=== PATIENT | female | born 1970 | race Caucasian/White ===

== ENCOUNTER 2020-07-22 09:48 | Outpatient (CLI) | payer BC, SELFPAY ==
--- NOTE | 2020-07-26 07:56 | WPDHOLTEREM ---
Holter/Event Monitor Holter/Event Monitor Date of procedure: 07/22/20 Procedure Type: 48 hour holter monitor Indications: Palpitations Conclusion: 1. 48 hour holter monitor on 07/22/20. 2. Underlying rhythm is sinus rhythm. HR range 46-126 bpm; average HR 71 bpm. 3. There are 59 premature supraventricular complexse and 1 supraventricular couplet. No supraventricular tachycardia. 4. There are 1,233 premature ventricular complexes, 39 ventricular couplets and 88 ventricular trigeminy. No ventricular tachycardia. 5. No sinoatrial or atrioventricular blocks. No significant pauses greater than 2 seconds. 6. No symptoms available for correlation.
== END 2020-07-22 09:49 | disposition home or self-care (01) ==
LOC: ANHCARD 09:49
PROVIDERS: PCP Internal Medicine; Visit Provider Internal Medicine Cardiovascular Disease
DX: R00.2 Palpitations (principal)
CPT/HCPCS: 93225; 93226

== ENCOUNTER 2023-04-21 09:57 | Outpatient (CLI) | payer OTHER, SELFPAY ==
--- NOTE | 2023-04-21 10:02 | ECHO_ITS ---
Patient Info Name: Perla Mattson Age: 53 years : 1970 Gender: Female Ht: 65 in Wt: 190 lbs BSA: 2.02 m2 HR: 68 bpm BP: 122 / 75 mmHg Heart Rhythm: Sinus Rhythm Technical Quality: Fair Exam Date: 04/21/2023 10:13 AM Exam Location: [facility] Patient Status: Outpatient Admit Date: 04/21/2023 Staff Ordering Physician: Aj Arellano DO Gas Operation Manager: Valery Morel RDCS Attending Provider: Aj Arellano DO Referring Physician: Adan PIERRE; Exam Type: CA echo doppler color flow Study Info Indications I49.3 - Ventricular premature depolarization Complete two-dimensional, color flow and Doppler transthoracic echocardiogram is performed. Summary 1. Complete two-dimensional, color flow and Doppler transthoracic echocardiogram is performed. 2. Left ventricular chamber dimension is normal. 3. Left ventricular systolic function is normal, estimated at 65-70%. 4. The left ventricular diastolic function is normal. 5. E/e' 7 is not elevated. 6. There is trace mitral valve regurgitation. 7. There is mild tricuspid valve regurgitation. 8. No pulmonary hypertension, estimated pulmonary arterial systolic pressure is 30 mmHg. 9. There is trace pulmonic regurgitation. Left Ventricle E/e' 7 is not elevated. Left ventricular chamber dimension is normal. Left ventricular systolic function is normal, estimated at 65-70%. The left ventricular diastolic function is normal. Right Ventricle Right ventricular chamber dimension is normal. Right ventricular systolic function is normal. Left Atria Left atrial chamber dimension is normal. Right Atria Right atrial chamber dimension is normal. Aortic Valve The aortic valve is trileaflet. There is no aortic valve stenosis. There is no aortic valve regurgitation. Pulmonic Valve There is trace pulmonic regurgitation. Mitral Valve There is no mitral valve stenosis. There is trace mitral valve regurgitation. Tricuspid Valve There is mild tricuspid valve regurgitation. No pulmonary hypertension, estimated pulmonary arterial systolic pressure is 30 mmHg. Pericardium/Pleural There is no pericardial effusion. Inferior Vena Cava Normal inferior vena cava with >50% collapse upon inspiration consistent with normal right atrial pressure, 5 mmHg. Aorta The aortic root size at the sinus of Valsalva is normal. Left Ventricular Outflow Tract Name Value Normal LVOT 2D LVOT Diameter 2.0 cm LVOT Doppler LVOT Peak Gradient 6 mmHg LVOT Mean Gradient 3 mmHg LVOT VTI 25 cm LVOT VTI/AV VTI Ratio 0.9 LVOT Stroke Volume 78 ml LVOT CO 4.6 l/min LVOT CI 2.3 l/min/m2 Pulmonic Valve Name Value Normal RVOT Doppler RVOT Peak Gradient 2 mmHg PV Doppler
--- NOTE | 2023-04-21 10:27 | EST_ITS ---
Patient Info Name: Perla Mattson Age: 53 years : 1970 Gender: Female Ht: 65 in Wt: 190 lbs BSA: 2.02 m2 HR: 62 bpm BP: 115 / 65 mmHg Heart Rhythm: Sinus Rhythm Exam Date: 04/21/2023 11:13 AM Exam Location: [facility] Patient Status: Outpatient Admit Date: 04/21/2023 Staff Ordering Physician: Aj Arellano DO Attending Provider: Aj Arellano DO Exercise Technologist: Debbie Chauhan CT Exercise Physician: Aj Arellano DO Exam Type: CA stress test treadmill Study Info Indications I49.3 - Ventricular premature depolarization A treadmill exercise stress test was performed. Summary 1. 1. Negative Rober exercise stress test for ischemic ST changes by ECG criteria. 2. 2. Good functional capacity, achieving 10 METs of workload. 3. 3. Appropriate HR response to exercise. 4. 4. Appropriate HR recovery at 1 minute post exercise. 5. 5. No imaging with stress testing. 6. 6. Patient informed of the above results. Protocol: Rober Stress ECG Details Stage: REST Duration (min): 0 min : 57 sec Speed (mph): 0.0 Grade (%): 0 HR (bpm): 64 SBP (mmHg): 115 DBP (mmHg): 65 METS: --- Stage: REST Duration (min): 5 min : 6 sec Speed (mph): 0.0 Grade (%): 0 HR (bpm): 70 SBP (mmHg): 115 DBP (mmHg): 65 METS: --- Stage: STAGE 1 Duration (min): 1 min : 0 sec Speed (mph): 1.7 Grade (%): 10 HR (bpm): 96 SBP (mmHg): 115 DBP (mmHg): 65 METS: --- Stage: STAGE 1 Duration (min): 2 min : 0 sec Speed (mph): 1.7 Grade (%): 10 HR (bpm): 106 SBP (mmHg): 115 DBP (mmHg): 65 METS: --- Stage: STAGE 1 Duration (min): 3 min : 0 sec Speed (mph): 1.7 Grade (%): 10 HR (bpm): 103 SBP (mmHg): 148 DBP (mmHg): 86 METS: --- Stage: STAGE 2 Duration (min): 1 min : 0 sec Speed (mph): 2.5 Grade (%): 12 HR (bpm): 119 SBP (mmHg): 148 DBP (mmHg): 86 METS: --- Stage: STAGE 2 Duration (min): 2 min : 0 sec Speed (mph): 2.5 Grade (%): 12 HR (bpm): 122 SBP (mmHg): 139 DBP (mmHg): 81 METS: --- Stage: STAGE 2 Duration (min): 3 min : 0 sec Speed (mph): 2.5 Grade (%): 12 HR (bpm): 122 SBP (mmHg): 139 DBP (mmHg): 81 METS: --- Stage: STAGE 3 Duration (min): 1 min : 0 sec Speed (mph): 3.4 Grade (%): 14 HR (bpm): 143 SBP (mmHg): 170 DBP (mmHg): 80 METS: --- Stage: STAGE 3 Duration (min): 2 min : 0 sec Speed (mph): 3.4 Grade (%): 14 HR (bpm): 148 SBP (mmHg): 170 DBP (mmHg): 80 METS: --- Stage: STAGE 3 Duration (min): 3 min : 0 sec Speed (mph): 3.4 Grade (%): 14 HR (bpm): 149 SBP (mmHg): 180 DBP (mmHg): 83 METS: --- Stage: RECOVERY Duration (min): 0 min : 59 sec Speed (mph): 0.0 Grade (%): 0 HR (bpm): 97 SBP (mmHg): 180 DBP (mmHg): 83 METS: --- Stage: RECOVERY Duration (min): 1 min : 59 sec Speed (mph): 0.0 Grade (%): 0 HR (bpm): 84 SBP (mmHg): 180 DBP (mmHg):
== END 2023-04-21 09:58 | disposition home or self-care (01) ==
PROVIDERS: PCP Internal Medicine; Visit Provider Internal Medicine Cardiovascular Disease
DX: R07.9 Chest pain, unspecified (principal); I49.3 Ventricular premature depolarization
CPT/HCPCS: 93017; 93306

== ENCOUNTER 2024-10-11 00:30 | Day surgery (SDC) | payer OTHER, SELFPAY ==
[2024-10-05 13:35] VITALS: BMI 33.3
--- NOTE | 2024-10-05 13:42 | PC.NURSE ---
Report to the Outpatient Waiting Room, entrance under the green pavilion located off [facility], at time _0630_ on date _[id number]_. Planned Procedure Time: _0730_.? Time changes happen often and if your time is changed the preop area will call you the afternoon before. - You and your visitor will be asked to self-screen and do not enter if you have any COVID symptoms. Please call surgeon if you need to reschedule. - A mask is optional within the hospital at this time. Ok for light breakfast. Take only the following medications with a SIP of water on the morning of surgery: ____None____ DO NOT STOP ANY OF YOUR OTHER PRESCRIPTION MEDICATIONS PRIOR TO SURGERY EXCEPT THE FOLLOWING Medications to discontinue per physician None Please no make-up, nail kazakh, hairspray, perfume, deodorant, or body powder the day of surgery.? No jewelry (including any body piercings) or valuables the day of surgery, leave them at home.? Please take a shower or bath the night before, or the morning of, surgery with an antibacterial soap.? Wear comfortable, loose fitting clothing.? - Jewelry must be removed prior to entering the operating room.? Rings and piercings that are not removed may be cut off. - The hospital will not accept responsibility for valuables.? - Please leave all valuables, including medications, at home the day of surgery. If you are going home after surgery, a licensed solo truck driver must drive you home.? - NO public transportation without another adult if you receive anesthesia. - We recommend that an adult stay with you for 24 hours following discharge. - We also recommend that you do not drive, make important decision, drink alcoholic beverages, or take any drugs that were not prescribed by your health care provider for at least 24 hours after your discharge time. Follow any additional instructions given to you from your surgeon. Telephone instructions given to __Perla__and asked if any additional questions and then verbalized understanding. Patient advised to call surgeon office or pre surgery nurse liaison [phone] if any additional questions.
[2024-10-11 07:00] VITALS: BP 123/79; PULSE 65; RESP 18; TEMP 36.3; O2SAT 99
[2024-10-11] MEDS: BUPIVACAINE/EPINEPHRINE 0.5% 50 ML VIAL 30 ML INFILTRATE (07:11)
--- NOTE | 2024-10-11 07:29 | WPDHPUPDATE1 ---
History and Physical Update Update Date/Time: 10/11/24 07:29 History and Physical has been reviewed, including an updated exam of the patient. There are NO changes in the patient's condition. Risks, benefits, and alternatives have been discussed and questions answered. Patient agrees to proceed with procedure.
[2024-10-11 07:40] VITALS: BP 129/69; PULSE 60; RESP 16; O2SAT 97
[2024-10-11 07:50] VITALS: BP 121/60; PULSE 64; RESP 16; O2SAT 97
[2024-10-11 08:00] VITALS: BP 125/61; PULSE 70; RESP 16; O2SAT 97
[2024-10-11 08:10] VITALS: BP 125/66; PULSE 62; RESP 16; O2SAT 97
[2024-10-11 08:16] VITALS: BP 116/75; PULSE 58; RESP 16; O2SAT 99
--- NOTE | 2024-10-11 08:32 | W.PM.PROC2 ---
Procedure Note - Detailed Date of Procedure 10/11/24 Pre-op Diagnosis skin cyst on back (1.2 cm x 1.2 cm) Post-op Diagnosis Other (Skin cyst of the back 1.8 cm) Procedure Performed Excision 1.8 cm skin cyst of the back with 2 mm margins, 2.2 cm excision. 8 cm layered closure. Surgeon Adair Vail MD Anesthesia Local Indications Patient has had a cyst in the mid upper back for quite a while. This swelled and drained. It has become quiescent but is still present. She is taken to surgery now to excise the cyst to prevent further infections. Findings 1.8 cm skin cyst Description of Procedure Patient was checked in the preoperative holding area. She was taken to surgery and placed in a prone position. The upper back was prepped and draped. The area of the cyst had been marked on the skin. A transversely oriented ellipse was then drawn to encompass the cyst. Local anesthetic using 0.5% Marcaine with epinephrine was infiltrated into the skin and into the deeper subcutaneous tissues. The cyst was excised with margins estimated to be 2 mm. The cyst was then measured and was 1.8 cm in greatest dimension. The wound was measured and was 8 cm in length. We used cautery to achieve hemostasis. Kodi's fascia was closed with interrupted 4-0 Vicryl suture. Subcuticular interrupted 4-0 Vicryl skin skin stitches were then placed. The skin was finally closed with a running 4-0 Monocryl skin suture. The wound was dressed with Exofin surgical adhesive. Patient tolerated the procedure well. Sponge and needle counts were correct x2. Estimated Blood Loss -5 Drains No Packing No Pathology Yes (Skin cyst of the back) Complications None Condition Stable Disposition Same day [facility] Billing Surgery - Charge Forward: Surgery Billing (Excision 1.8 cm skin cyst of the back with 2 mm margins, 2.2 cm excision. 8 cm layered closure.)
== END 2024-10-11 08:34 | disposition home or self-care (01) ==
PROVIDERS: PCP Internal Medicine; Visit Provider Surgery
PROC: (CPT 11402; principal; 2024-10-11 07:30)
DX: L72.0 Epidermal cyst (principal); R00.2 Palpitations; Z98.890 Other specified postprocedural states; Z82.49 Family history of ischemic heart disease and other diseases of the circulatory system
CPT/HCPCS: 11402; 13101; 13102; 88305